=== PATIENT | male | born 1995 | race Caucasian/White ===

== ENCOUNTER 2017-11-21 22:00 | Emergency (ER) | payer BC ==
[~2017-11-21] VITALS: Ht 188 cm; Wt 83.9 kg
--- NOTE | 2017-11-21 22:07 | ER Report ---
History and Physical Time Seen By MD: 22:05 HPI/ROS CHIEF COMPLAINT: Left wrist injury HISTORY OF PRESENT ILLNESS: Left wrist bent back suddenly while playing lacrosse not sure which way it bent but pain is located at the base of the thumb and wrist. Not severe enough to require pain medicine at this time patient reports taking nothing prior to arrival no other concerns or complaints today no numbness tingling or weakness in the affected hand. REVIEW OF SYSTEMS: Respiratory: No cough, no dyspnea. Cardiovascular: No chest pain, no palpitations. Gastrointestinal: No vomiting, no abdominal pain. Musculoskeletal: No back pain. Constitutional Vital Sign - Last 24 Hours 11/21/17 22:13 Pulse 95 Resp 20 B/P (MAP) 154/109 Pulse Ox 95 O2 Delivery Room Air Physical Exam General Appearance: The patient is alert, has no immediate need for airway protection and no current signs of toxicity. No acute distress Eyes: Pupils equal and round no injection. Respiratory: Chest is non tender, lungs are clear to auscultation. Cardiac: regular rate and rhythm [ ] Gastrointestinal: Abdomen is soft and non tender, no masses, bowel sounds normal. Musculoskeletal: Neck: Neck is supple and non tender. Left wrist tender below her aspect and at base of thumb mild snuffbox tenderness mild pain with axial load of thumb other Extremities have full range of motion and are non tender. Skin: No rashes or lesions. Intact no lacerations DIFFERENTIAL DIAGNOSIS: After history and physical exam differential diagnosis was considered for wrist fracture wrist sprain no signs of open fracture nerve tendon or vascular injury. Medical Decision Making ED Course/Re-evaluation ED Course Plan of care discussed Radiology report discussed Splint use home care follow-up and referral as needed by PCP discussed all questions answered and understood Decision to Disposition Date: Nov 21, 2017 Decision to Disposition Time: 23:26 Depart Departure Latest Vital Signs Vital Signs Date Time Temp Pulse Resp B/P (MAP) Pulse Ox O2 Delivery O2 Flow Rate FiO2 11/21/17 22:13 95 20 154/109 95 Room Air Impression: Primary Impression: Radial styloid fracture Additional Impression: Injury of left wrist Condition: Improved Disposition: HOME OR SELF-CARE Referrals: TRENT MAZARIEGOS MD New Scripts Hydrocodone Bit/Acetaminophen (HYDROCODON-ACETAMINOPHEN 5-325) 1 Each Tablet 1 EACH PO Q4H Y for PAIN, #12 TAB 0 Refills Prov: SANDY ZULETA MD 11/21/17 Ibuprofen/Diphenhydramine Cit (MOTRIN PM CAPLET) 1 Each Tablet 1 EACH PO every 6 hours for PAIN for 7 Days, #30 CALORIES Prov: SANDY ZULETA MD 11/21/17 Patient Instructions: Wrist Fracture in Adults (ED) Problem Qualifiers SANDY ZULETA MD Nov 21, 2017 22:07
[2017-11-21 22:13] VITALS: BP 154/109
--- NOTE | 2017-11-21 23:08 | RADIOLOGY IMAGING REPORT ---
[place] [facility] [place] NAME: Ike Mendoza : 1995 MR: [id number] V: [id number] EXAM DATE: ORDERING PHYSICIAN: SANDY ZULETA TECHNOLOGIST: Location: [facility] - [place] Patient: Ike Mendoza : 1995 Visit/Account:[id number] Date of Sevice: 11/21/2017 WRIST LEFT MIN 3 VIEW HISTORY: Wrist injury COMPARISON: None FINDINGS: Nondisplaced fracture of the radial styloid best seen on scaphoid view. Carpal rows are wel l aligned. Scaphoid bone is intact. Scapholunate and lunotriquetral intervals are normal. IMPRESSION: 1. Nondisplaced fracture of the radial styloid. Report Dictated By: Manjeet Layne MD at 11/21/2017 11:00 PM Report E-Signed By: Manjeet Layne MD at 11/21/2017 11:04 PM WSN:[id number]
[2017-11-21] MEDS ORDERED: IBUP1TAB84 PO (23:30)
[2017-11-21] MEDS ORDERED: LOR5/325 PO (23:30)
== END 2017-11-21 23:53 | disposition home or self-care (01) ==
LOC: ER 22:07
DX: S52.515A Nondisplaced fracture of left radial styloid process, initial encounter for closed fracture (principal)
CPT/HCPCS: 99282